=== PATIENT | female | born 1990 | race Caucasian/White ===

== ENCOUNTER 2017-06-06 16:35 | Emergency (ER) | payer SELFPAY ==
[~2017-06-06] VITALS: Ht 167.6 cm; Wt 90.7 kg
[~2017-06-06 16:35] MED LIST: IBP600T1 PO; OXYC-12 PO; PREN-115 PO
[2017-06-06 17:17] LABS: BILIRUBIN,URINE NEGATIVE (NEGATIVE); CLARITY,URINE VERY CLOUDY; COLOR,URINE YELLOW; GLUCOSE, URINE (UA) NEGATIVE (NEGATIVE); KETONES,URINE 3+ (NEGATIVE); LEUKOCYTE ESTERASE ,URINE 3+ (NEGATIVE); NITRITE,URINE POSITIVE (NEGATIVE); PH,URINE 6 (5-9); PROTEIN,URINE 3+ (NEGATIVE); UROBILINOGEN,URINE 1 MG/DL (NORMAL)
[2017-06-06 17:27] LABS: BACTERIA,URINE FEW /HPF; WBC,URINE >100 /HPF
[2017-06-06 17:31] LABS: AMPHETAMINE SCREEN, URINE NEGATIVE (NEGATIVE); BARBITURATE SCREEN URINE NEGATIVE (NEGATIVE); BENZODIAZEPINES SCREEN URINE NEGATIVE (NEGATIVE); CANNABINOID SCREEN, URINE POSITIVE (NEGATIVE); COCAINE SCREEN URINE NEGATIVE (NEGATIVE); METHADONE STAT NEGATIVE (NEGATIVE); METHAMPHETAMINE SCREEN URINE S NEGATIVE (NEGATIVE); OPIATE SCREEN URINE NEGATIVE (NEGATIVE); OXYCODONE STAT NEGATIVE (NEGATIVE); PROPOXYPHENE STAT NEGATIVE (NEGATIVE); TRICYCLIC ANTIDEPRESSANTS SCRE NEGATIVE (NEGATIVE)
[2017-06-06] MEDS ORDERED: LACTATED RINGERS 1,000 ML IV STA (17:52)
[2017-06-06] MEDS ORDERED: LACTATED RINGERS 1,000 ML IV ONE (17:52)
[2017-06-06 18:00] LABS: BASOPHILS % (AUTO) 0 % (0-10); EOSINOPHILS % (AUTO) 0 % (0-10); HEMATOCRIT 38 % (35-52); HEMOGLOBIN 13.1 G/DL (11.5-16.0); LYMPHOCYTES # (AUTO) 1.6 X 10^3 (1.0-4.0); LYMPHOCYTES % (AUTO) 11 % (12-44); MEAN CORPUSCULAR HEMOGLOBIN 30 PG (25-34); MEAN CORPUSCULAR HGB CONC 35 G/DL (32-36); MEAN CORPUSCULAR VOLUME 88 FL (80-99); MEAN PLATELET VOLUME 10.8 FL (7.4-10.4); MONOCYTES # (AUTO) 1.4 X 10^3 (0.0-1.0); MONOCYTES % (AUTO) 9 % (0-12); NEUTROPHILS # (AUTO) 12.7 X 10^3 (1.8-7.8); NEUTROPHILS % (AUTO) 81 % (42-75); PLATELET COUNT 170 10^3/uL (130-400); RED BLOOD COUNT 4.33 10^6/uL (4.35-5.85); RED CELL DISTRIBUTION WIDTH 12.1 % (10.0-14.5); WHITE BLOOD COUNT 15.7 10^3/uL (4.3-11.0)
[2017-06-06] MEDS ORDERED: ONDANSETRON 4 MG/2 ML (SDV) Z0FRAN IVP ONE (18:00)
[2017-06-06] MEDS ORDERED: KETOROLAC 30 MG/ML VIAL IVP ONE (18:00)
[2017-06-06] MEDS ORDERED: cefTRIAXone INJECTION 1,000 MG in NS (IVPB) 100 ML IV ONE (18:00)
--- NOTE | 2017-06-06 18:00 | ED Abdominal Pain ---
General Chief Complaint: -Female Stated Complaint: BACK CRAMPING,HEADACHE Nursing Triage Note: AMBULATED TO ROOM 02 WITH COMPLAINTS OF LOWER RIGHT SIDED BACK PAIN SINCE WED. THINKS SHE HAS A KIDNEY INFECTION. Sepsis Screen: No Definite Risk Source of Information: Patient, Family (sister) Exam Limitations: No Limitations History of Present Illness Date Seen by Provider: Jun 06, 2017 Time Seen by Provider: 17:47 Initial Comments This patient presents to ER by private conveyance with a chief complaint that she has been having pain in her right flank for the past 5 days. She has not seen anybody about this and is progressively gotten worst she's had no chills or fever. She has however had a lot of nausea, vomiting without blood in it and decreased appetite. She has no dysuria, discharge or difficulty passing a bowel movement. No other significant medical history or history of abdominal surgeries. She denies a history of trauma or kidney stones. Allergies and Home Medications Allergies Coded Allergies: No Known Drug Allergies (Unverified , 04/20/12) Home Medications No Active Prescriptions or Reported Meds Patient Home Medication List Home Medication List Reviewed: Yes Review of Systems Constitutional: No chills, No diaphoresis, No fever, malaise EENTM: No Blurred Vision, No Double Vision Respiratory: Denies Cough, Denies Shortness of Air Cardiovascular: Denies Chest Pain, Denies Edema, Denies Lightheadedness Gastrointestinal: See HPI, Denies Abdomen Distended, Abdominal Pain, Denies Constipated, Denies Diarrhea, Nausea, Poor Fluid Intake, Vomiting Genitourinary: Denies Burning, Denies Discharge Musculoskeletal: No back pain, No joint pain Past Xmuhgcr-Dfwqdu-Xhifop Hx Patient Social History Alcohol Use: Occasionally Uses Recreational Drug Use: Yes Drug of Choice: POT Smoking Status: Current Everyday Smoker Recent Foreign Travel: No Contact w/Someone Who Travel: No Recent Infectious Disease Expo: No Immunizations Up To Date Tetanus Booster (TDap): Unknown PED Vaccines UTD: Yes Date of Influenza Vaccine: Apr 22, 2012 Surgeries History of Surgeries: No Respiratory History of Respiratory Disorde: No Cardiovascular History of Cardiac Disorders: No Neurological History of Neurological Disord: No Reproductive System Hx Reproductive Disorders: No Genitourinary History of Genitourinary Disor: No Gastrointestinal History of Gastrointestinal Di: No Musculoskeletal History of Musculoskeletal Dis: No Endocrine History of Endocrine Disorders: No HEENT History of HEENT Disorders: No Cancer History of Cancer: No Did You Recieve Any Treatments: No Psychosocial History of Psychiatric Problem: No Integumentary History of Skin or Integumenta: No Blood Transfusions History of Blood Disorders: No Adverse Reaction to a Blood Tr: No Physical Exam Vital Signs VS - Last 72 Hours, by Label 06/06/17 17:00 Temp 99.0 Pulse 138 Resp 18 B/P (MAP) 137/86 (103) Pulse Ox 98 Capillary Refill : Less Than 3 Seconds General Appearance: WD/WN, no apparent distress HEENT: PERRL/EOMI, TMs normal, pharynx normal Neck: non-tender, normal inspection Respiratory: chest non-tender, lungs clear, normal breath sounds, no respiratory distress, no accessory muscle use Cardiovascular: normal peripheral pulses, regular rate, rhythm, no edema Peripheral Pulses: 2+ Radial Pulses (R), 2+ Radial Pulses (L) Gastrointestinal: normal bowel sounds, soft (mild epigastric), no organomegaly , tenderness Extremities: normal range of motion, no pedal edema, no calf tenderness Back: normal inspection, CVA tenderness (R) Neurologic/Psychiatric: alert, oriented x 3 Skin: normal color, warm/dry Progress/Results/Core Measures Results/Orders Lab Results Laboratory Tests Test 06/06/17 17:05 06/06/17 17:50 Range/Units Urine Color YELLOW Urine Clarity VERY CLOUDY H Urine pH 6 5-9 Urine Specific Shock 1.010 L 1.016-1.022 Urine Protein 3+ H NEGATIVE Urine Glucose (UA) NEGATIVE NEGATIVE Urine Ketones 3+ H NEGATIVE Urine Nitrite POSITIVE H NEGATIVE Urine Bilirubin NEGATIVE NEGATIVE Urine Urobilinogen 1 NORMAL MG/DL Urine Leukocyte Esterase 3+ H NEGATIVE Urine RBC (Auto) 5+ H NEGATIVE Urine RBC NONE /HPF Urine WBC >100 H /HPF Urine Squamous Epithelial Cells 2-5 /HPF Urine Crystals NONE /LPF Urine Bacteria FEW H /HPF Urine Casts NONE /LPF Urine Mucus NEGATIVE /LPF Urine Culture Indicated YES Urine Opiates Screen NEGATIVE NEGATIVE Urine Oxycodone Screen NEGATIVE NEGATIVE Urine Methadone Screen NEGATIVE NEGATIVE Urine Propoxyphene Screen NEGATIVE NEGATIVE Urine Barbiturates Screen NEGATIVE NEGATIVE Ur Tricyclic Antidepressants Screen NEGATIVE NEGATIVE Urine Phencyclidine Screen NEGATIVE NEGATIVE Urine Amphetamines Screen NEGATIVE NEGATIVE Urine Methamphetamines Screen NEGATIVE NEGATIVE Urine Benzodiazepines Screen NEGATIVE NEGATIVE Urine Cocaine Screen NEGATIVE NEGATIVE Urine Cannabinoids Screen POSITIVE H NEGATIVE White Blood Count 15.7 H 4.3-11.0 10^3/uL Red Blood Count 4.33 L 4.35-5.85 10^6/uL Hemoglobin 13.1 11.5-16.0 G/DL Hematocrit 38 35-52 % Mean Corpuscular Volume 88 80-99 FL Mean Corpuscular Hemoglobin 30 25-34 PG Mean Corpuscular Hemoglobin Concent 35 32-36 G/DL Red Cell Distribution Width 12.1 10.0-14.5 % Platelet Count 170 130-400 10^3/uL Mean Platelet Volume 10.8 H 7.4-10.4 FL Neutrophils (%) (Auto) 81 H 42-75 % Lymphocytes (%) (Auto) 11 L 12-44 % Monocytes (%) (Auto) 9 0-12 % Eosinophils (%) (Auto) 0 0-10 % Basophils (%) (Auto) 0 0-10 % Neutrophils # (Auto) 12.7 H 1.8-7.8 X 10^3 Lymphocytes # (Auto) 1.6 1.0-4.0 X 10^3 Monocytes # (Auto) 1.4 H 0.0-1.0 X 10^3 Eosinophils # (Auto) 0.0 0.0-0.3 10^3/uL Basophils # (Auto) 0.0 0.0-0.1 10^3/uL Neutrophils % (Manual) 84 % Lymphocytes % (Manual) 12 % Monocytes % (Manual) 4 % Blood Morphology Comment NORMAL Sodium Level 132 L 135-145 MMOL/L Potassium Level 3.5 L 3.6-5.0 MMOL/L Chloride Level 100 98-107 MMOL/L Carbon Dioxide Level 22 21-32 MMOL/L Anion Gap 10 5-14 MMOL/L Blood Urea Nitrogen 8 7-18 MG/DL Creatinine 0.91 0.60-1.30 MG/DL Estimat Glomerular Filtration Rate > 60 BUN/Creatinine Ratio 9 Glucose Level 108 H 70-105 MG/DL Calcium Level 9.3 8.5-10.1 MG/DL Total Bilirubin 0.8 0.1-1.0 MG/DL Aspartate Amino Transf (AST/SGOT) 17 5-34 U/L Alanine Aminotransferase (ALT/SGPT) 20 0-55 U/L Alkaline Phosphatase 79 40-136 U/L Total Protein 7.7 6.4-8.2 GM/DL Albumin 4.1 3.2-4.5 GM/DL My Orders Orders - RIVAS FERREIRA Cbc With Automated Diff (06/06/17 17:52) Comprehensive Metabolic Panel (06/06/17 17:52) Saline Lock/Iv-Start (06/06/17 17:52) Lactated Ringers (Lr 1000 Ml Iv Solution (06/06/17 17:52) Ct Abd/Pelvis Wo(Kidney Stone) (06/06/17 17:52) Urine Bedside (06/06/17 17:52) Lactated Ringers (Lr 1000 Ml Iv Solution (06/06/17 17:52) Ketorolac Injection (Toradol Injection) (06/06/17 18:00) Ondansetron Injection (Zofran Injectio (06/06/17 18:00) Ceftriaxone Injection (Rocephin Injectio (06/06/17 18:00) Manual Differential (06/06/17 17:50) Medications Given in ED Current Medications Medications Dose Ordered Sig/Zainab Route Start Time Stop Time Status Last Admin Dose Admin Ceftriaxone Sodium 1000 mg/ Sodium Chloride 100 ml @ 200 mls/hr ONCE ONCE IV 06/06/17 18:00 06/06/17 18:29 DC 06/06/17 18:17 200 MLS/HR Ketorolac Tromethamine 15 mg ONCE ONCE IVP 06/06/17 18:00 06/06/17 18:01 DC 06/06/17 18:17 15 MG Lactated Ringer's 1,000 ml @ 0 mls/hr Q0M ONCE IV 06/06/17 17:52 06/06/17 17:56 DC 06/06/17 18:18 1,000 MLS/HR Ondansetron HCl 4 mg ONCE ONCE IVP 06/06/17 18:00 06/06/17 18:01 DC 06/06/17 18:17 4 MG Vital Signs/I&O Vital Sign - Last 12Hours 06/06/17 17:00 Temp 99.0 Pulse 138 Resp 18 B/P (MAP) 137/86 (103) Pulse Ox 98 Blood Pressure Mean: 103 Point of Care Testing Urine -Bedside: Negative Progress Note #1: Time: 17:59 Progress Note Urinalysis demonstrates red blood cells and white blood cells and nitrites. Concern for pyelonephritis versus renal stone. We'll start her on some antibiotics. Her some pain and nausea medicines. Finally we'll get a CT scan looking for CTs evident stones area Progress Note #2: Time: 19:26 Progress Note Discussed pyelonephritis and management outpatient with pain medicines, nausea medicines and super Floxin. She does not have a primary care physician but she says she will establish care with the clinic where her sister attends at [facility] and be seen Wednesday or Wednesday. We have given her strict return precautions. Diagnostic Imaging Diagonstic Imaging: CT Plain Films/CT/US/NM/MRI: abdomen, pelvis Comments VIA [facility]. [place], [place] NAME: VICKIE GARDUNO [facility] REC#: [id number] PT STATUS: REG ER : 1990 PHYSICIAN: RIVAS FERREIRA MD ADMIT DATE: 06/06/17/ER Draft Date of Exam:06/06/17 CT ABD/PELVIS WO(KIDNEY STONE) PROCEDURE: CT urinary tract, rule out kidney stone. TECHNIQUE: Multiple contiguous axial images were obtained through the abdomen and pelvis without the use of intravenous contrast. INDICATION: Right-sided flank pain. Fever. Vomiting. COMPARISON: None. FINDINGS: There is moderate stranding about a mildly enlarged right kidney. No hydronephrosis. There is wall thickening of the right renal pelvis. No radiopaque obstructing lesions are seen within the right ureter or bladder. The left kidney and collecting system are negative. The lung bases are clear. The liver, gallbladder, pancreas and adrenals are negative. Normal appendix. Calcified granulomas in the spleen. No free intraperitoneal air or fluid. The reproductive structures are grossly unremarkable. No lymphadenopathy. No evidence of bowel obstruction. Osseous structures are unremarkable. IMPRESSION: Moderate stranding about mildly enlarged right kidney and wall thickening of the right renal pelvis. There is no hydronephrosis or obstructing lesions seen. Findings most commonly seen with a recently passed renal stone versus an infectious process. Dictated on workstation # [id number] Dict: 06/06/171901 Trans: 06/06/171911 NICHOLAS [id number] Interpreted by: LUIS A PATEL MD Electronically signed by: Reviewed: Reviewed by Me Departure Impression Impression: Primary Impression: Pyelonephritis Disposition: 01 HOME, SELF-CARE Condition: Improved Departure-Patient Inst. Decision time for Depature: 19:27 Referrals: NO,LOCAL PHYSICIAN (PCP/Family) Primary Care Physician Patient Instructions: Urinary Tract Infection, Adult (DC) Add. Discharge Instructions: Drink copious amounts of fluids. Use ibuprofen 800 mg 3 times a day as needed for pain. You can also use Tylenol 1000 mg every 8 hours as needed. If her pain still breaking through you can use the hydrocodone every 6 hours. Hydrocodone will cause constipation and drowsiness. If you have nausea take one tablet of Zofran ODT and place under tongue and allowed to absorb every 6 hours as needed. 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 Follow-up with a primary care physician sometime next week for management. If you start to have fevers or chills up to 3 days or you' re getting worse you should return to the ER. \ All discharge instructions reviewed with patient and/or family. Voiced understanding. Scripts Hydrocodone Bit/Acetaminophen (Hydrocodone/Acetaminophen 5/325mg Tablet) 1 Tab Tab 1-2 EACH PO Q6H Y for BREAKTHROUGH PAIN, #15 TAB 0 Refills Prov: RIVAS FERREIRA 06/06/17 Ondansetron (Ondansetron Odt) 4 Mg Tab.rapdis 4 MG PO Q6H Y for NAUSEA/VOMITING, #8 TAB 0 Refills Prov: RIVAS FERREIRA 06/06/17 Ciprofloxacin HCl (Ciprofloxacin HCl) 500 Mg Tablet 500 MG PO BID for 10 Days, #20 TAB Prov: RIVAS FERREIRA 06/06/17 Copy Copies To 1: PATRICIA WAYNE TITUS J Jun 06, 2017 17:59
[2017-06-06 18:20] LABS: LYMPHOCYTES % (MANUAL) 12 %; MONOCYTES % (MANUAL) 4 %; NEUTROPHILS % (MANUAL) 84 %; RBC MORPH NORMAL
[2017-06-06 18:21] LABS: ALANINE AMINOTRANSFERASE 20 U/L (0-55); ALBUMIN 4.1 GM/DL (3.2-4.5); ALKALINE PHOSPHATASE 79 U/L (40-136); BILIRUBIN,TOTAL 0.8 MG/DL (0.1-1.0); BUN/CREATININE RATIO 9; CALCIUM 9.3 MG/DL (8.5-10.1); CARBON DIOXIDE 22 MMOL/L (21-32); CHLORIDE 100 MMOL/L (98-107); CREATININE SERUM 0.91 MG/DL (0.60-1.30); GFR ESTIMATED > 60; GLUCOSE 108 MG/DL (70-105); POTASSIUM 3.5 MMOL/L (3.6-5.0); SODIUM 132 MMOL/L (135-145); TOTAL PROTEIN 7.7 GM/DL (6.4-8.2)
--- NOTE | 2017-06-06 19:13 | Diagnostic Imaging Report ---
PROCEDURE: CT urinary tract, rule out kidney stone. TECHNIQUE: Multiple contiguous axial images were obtained through the abdomen and pelvis without the use of intravenous contrast. INDICATION: Right-sided flank pain. Fever. Vomiting. COMPARISON: None. FINDINGS: There is moderate stranding about a mildly enlarged right kidney. No hydronephrosis. There is wall thickening of the right renal pelvis. No radiopaque obstructing lesions are seen within the right ureter or bladder. The left kidney and collecting system are negative. The lung bases are clear. The liver, gallbladder, pancreas and adrenals are negative. Normal appendix. Calcified granulomas in the spleen. No free intraperitoneal air or fluid. The reproductive structures are grossly unremarkable. No lymphadenopathy. No evidence of bowel obstruction. Osseous structures are unremarkable. IMPRESSION: Moderate stranding about mildly enlarged right kidney and wall thickening of the right renal pelvis. There is no hydronephrosis or obstructing lesions seen. Findings are most commonly seen with a recently passed renal stone versus an infectious process. Dictated by: Dictated on workstation # [id number]
[2017-06-06] MEDS ORDERED: ONDA4TAB11 PO (19:30)
[2017-06-06] MEDS ORDERED: CIPR500T4 PO (19:30)
[2017-06-06] MEDS ORDERED: ACHD5005 PO (19:30)
[2017-06-06 19:40] VITALS: BP 112/78
== END 2017-06-06 19:40 | disposition home or self-care (01) ==
LOC: EDUNIT# 16:35 → ER 16:37
DX: N12 Tubulo-interstitial nephritis, not specified as acute or chronic (principal); F12.10 Cannabis abuse, uncomplicated; F17.200 Nicotine dependence, unspecified, uncomplicated
CPT/HCPCS: 36415; 74176; 80053; 80306; 81000; 84703; 85007; 85027; 87088; 87186; 96361; 96365; 96375